=== PATIENT | male | born 1980 | race Caucasian/White ===

== ENCOUNTER → 2018-05-09 | Emergency (ER) | payer OTHER ==
[~2018-05-09] VITALS: Ht 190.5 cm; Wt 143.3 kg
[~2018-05-09] MED LIST: BACTRIM DS TAB1 EACH PO; COZAAR100 MG; FORTAMET1000 MG; GLUCOTROL10 MG; INTESTINEX680 M1 PO; OXYC1TAB9 PO
== END | disposition home or self-care (01) ==
LOC: ER 17:10
DX: L03.115 Cellulitis of right lower limb (principal); B95.62 Methicillin resistant Staphylococcus aureus infection as the cause of diseases classified elsewhere; B95.1 Streptococcus, group B, as the cause of diseases classified elsewhere